=== PATIENT | female | born 1995 | race African-American/Black ===

== ENCOUNTER 2022-01-23 22:03 | Emergency (ER) | payer OTHER, SELFPAY ==
--- NOTE | ~2022-01-23 | XR_ITS ---
EXAMINATION: XR CHEST CLINICAL INFORMATION: Shortness of breath COMPARISON: None TECHNIQUE: Frontal view of the chest was obtained. FINDINGS: The lungs are clear with no focal consolidation. No evidence of pneumothorax, pulmonary edema, or pleural effusions. The cardiomediastinal silhouette is unremarkable. No acute osseous findings. XR/XR chest 1V IMPRESSION: No acute cardiopulmonary findings.
[2022-01-23 22:11] VITALS: BP 114/70; PULSE 90; O2SAT 99
[2022-01-23 22:13] VITALS: BP 132/79; PULSE 86; RESP 20; TEMP 36.3; O2SAT 98; BMI 36.5
[2022-01-23 23:07] LABS: Hematocrit 31.5 % (37.0-47.0); Hemoglobin 8.8 g/dl (12.0-16.0); Imm Gran Abs Auto 0.02 X10*3/uL (0.00-0.03); Imm Gran Pct Auto 0.3 % (0.0-0.4); Lymphocytes Percent Auto 31.2 % (20-40); Mean Corpuscular HGB Conc 27.9 g/dl (31.0-35.0); PLT ABN DIST 1; SCAN SMEAR FLAG 1
[2022-01-23 23:08] LABS: Basophils Absolute Auto 0.1 X10*3/uL (0.0-0.2); Basophils Percent Auto 0.8 % (0-2); Eosinophils Absolute Auto 0.2 X10*3/uL (0.0-0.4); Eosinophils Percent Auto 2.2 % (0-4); Lymphocytes Absolute Auto 2.4 X10*3/uL (1.2-4.9); Mean Corpuscular Hemoglobin 17.1 pg (27.0-33.0); Monocytes Absolute Auto 0.7 X10*3/uL (0.1-1.2); Monocytes Percent Auto 8.5 % (2-11); Neutrophils Absolute Auto 4.4 x10*3/uL (2.0-8.3); Platelet Count 280 X10*3/uL (160-400); Red Blood Count 5.14 X10*6/uL (4.20-5.50); Red Cell Distribution Width 21.6 % (11.0-16.0); White Blood Count 7.8 X10*3/uL (4.8-10.8)
[2022-01-23 23:21] LABS: COVID-19 Test Negative (Negative); IDNOW Serial# 16C4AD1C; IDNOW Serial# BCCEAD1C; Influenza A Negative (Negative); Influenza B2 Negative (Negative)
[2022-01-23 23:34] LABS: MANUAL DIFF FLAG NO
[2022-01-23 23:35] LABS: Mean Corpuscular Volume 61.3 fL (80.0-98.0)
[2022-01-23 23:40] LABS: Alanine Aminotransferase 23 U/L (0-31); Albumin Level 4.1 g/dL (3.5-5.0); Alkaline Phosphatase 78 U/L (39-117); Anion Gap 15 (12-20); Aspartate Amino Transferase 22 U/L (5-31); Blood Urea Nitrogen 11 mg/dL (9-16); Carbon Dioxide 26 mmol/L (22-29); Chloride 104 mmol/L (96-108); Creatinine Clr Calc Pharmacy 136.3; Estimated Glomerular Filt Rate > 60; Glucose Random 108 mg/dL (60-115); Lipase 17 U/L (8-78); Potassium 4.5 mmol/L (3.3-5.1); Sodium 140 mmol/L (135-145); Total Protein 7.5 g/dL (6.5-8.0)
[2022-01-24] VITALS: BP 108/70; PULSE 74; RESP 16; TEMP 36.6; O2SAT 98
--- NOTE | 2022-01-24 00:08 | ED.ABDPAIN ---
HPI - Abdominal Pain General Chief Complaint: Abdominal Pain Stated Complaint: abd pain Time Seen by Provider: 01/24/22 00:02 Related Data Allergies Allergy/AdvReac Type Severity Reaction Status Date / Time No Known Allergies Allergy Verified 01/23/22 22:18 COUNTS INCLUDE 234 BEDS AT THE [facility] Social History Social History Smoked in Last 30 Days: Yes Use of substances other than those prescribed or required for medical reasons: No Advance Directives: No Advance Directives Information Provided: Yes Patient : No Physical Exam ED Vital Signs: Vital Signs - 24 hr 01/23/22 22:13 01/24/22 00:00 Temperature 97.3 F 97.8 F Pulse Rate 86 74 Respiratory Rate 20 16 Blood Pressure 132/79 108/70 Pulse Oximetry 98 98 Oxygen Delivery Method Room Air Room Air BMI result Body Mass Index 36.5 MDM - Abdominal Pain Lab Data Result diagrams: 01/23/22 22:58 01/23/22 22:58 Labs: Lab Results 01/23/22 01/23/22 01/23/22 Range/Units 22:58 22:58 22:58 WBC 7.8 (4.8-10.8) X10*3/uL RBC 5.14 (4.20-5.50) X10*6/uL Hgb 8.8 L (12.0-16.0) g/dl Hct 31.5 L (37.0-47.0) % MCV 61.3 L (80.0-98.0) fL MCH 17.1 L (27.0-33.0) pg MCHC 27.9 L (31.0-35.0) g/dl RDW 21.6 H (11.0-16.0) % Plt Count 280 (160-400) X10*3/uL MPV TNP Immature Gran % (Auto) 0.3 (0.0-0.4) % Neut % (Auto) 57.0 (45-73) % Lymph % (Auto) 31.2 (20-40) % Titus % (Auto) 8.5 (2-11) % Eos % (Auto) 2.2 (0-4) % Baso % (Auto) 0.8 (0-2) % Lymph # (Auto) 2.4 (1.2-4.9) X10*3/uL Titus # (Auto) 0.7 (0.1-1.2) X10*3/uL Eos # (Auto) 0.2 (0.0-0.4) X10*3/uL Baso # (Auto) 0.1 (0.0-0.2) X10*3/uL Abs Immat Gran (auto) 0.02 (0.00-0.03) X10*3/uL Absolute Neuts (auto) 4.4 (2.0-8.3) x10*3/uL Absolute Nucleated RBC 0.000 (0.0-0.012) X10*3/uL Nucleated RBC % (auto) 0.0 (0.0-0.2) /100WBC Sodium 140 (135-145) mmol/L Potassium 4.5 (3.3-5.1) mmol/L Chloride 104 (96-108) mmol/L Carbon Dioxide 26 (22-29) mmol/L Anion Gap 15 (12-20) BUN 11 (9-16) mg/dL Creatinine 0.78 (0.5-1.4) mg/dL Estim Creat Clear Calc 136.3 Estimated GFR > 60 Random Glucose 108 (60-115) mg/dL Calcium 9.0 (8.4-10.2) mg/dL AST 22 (5-31) U/L ALT 23 (0-31) U/L Alkaline Phosphatase 78 (39-117) U/L Total Protein 7.5 (6.5-8.0) g/dL Albumin 4.1 (3.5-5.0) g/dL Lipase 17 (8-78) U/L COVID-19 (NAVIN) (Negative) COVID-19 Clin Com Influenza Type A (VIVI) Negative (Negative) Influenza Type B (VIVI) Negative (Negative) Influenza A & B Note See Note 01/23/22 Range/Units 22:58 WBC (4.8-10.8) X10*3/uL RBC (4.20-5.50) X10*6/uL Hgb (12.0-16.0) g/dl Hct (37.0-47.0) % MCV (80.0-98.0) fL MCH (27.0-33.0) pg MCHC (31.0-35.0) g/dl RDW (11.0-16.0) % Plt Count (160-400) X10*3/uL MPV Immature Gran % (Auto) (0.0-0.4) % Neut % (Auto) (45-73) % Lymph % (Auto) (20-40) % Titus % (Auto) (2-11) % Eos % (Auto) (0-4) % Baso % (Auto) (0-2) % Lymph # (Auto) (1.2-4.9) X10*3/uL Titus # (Auto) (0.1-1.2) X10*3/uL Eos # (Auto) (0.0-0.4) X10*3/uL Baso # (Auto) (0.0-0.2) X10*3/uL Abs Immat Gran (auto) (0.00-0.03) X10*3/uL Absolute Neuts (auto) (2.0-8.3) x10*3/uL Absolute Nucleated RBC (0.0-0.012) X10*3/uL Nucleated RBC % (auto) (0.0-0.2) /100WBC Sodium (135-145) mmol/L Potassium (3.3-5.1) mmol/L Chloride (96-108) mmol/L Carbon Dioxide (22-29) mmol/L Anion Gap (12-20) BUN (9-16) mg/dL Creatinine (0.5-1.4) mg/dL Estim Creat Clear Calc Estimated GFR Random Glucose (60-115) mg/dL Calcium (8.4-10.2) mg/dL AST (5-31) U/L ALT (0-31) U/L Alkaline Phosphatase (39-117) U/L Total Protein (6.5-8.0) g/dL Albumin (3.5-5.0) g/dL Lipase (8-78) U/L COVID-19 (NAVIN) Negative (Negative) COVID-19 Clin Com See Note Influenza Type A (VIVI) (Negative) Influenza Type B (VIVI) (Negative) Influenza A & B Note
--- NOTE | 2022-01-24 00:43 | ED_ITS ---
HPI - URI/Sore Throat General Chief Complaint: Abdominal Pain Stated Complaint: abd pain Time Seen by Provider: 01/24/22 00:02 Source: patient Mode of arrival: ambulatory Limitations: no limitations History of Present Illness HPI Narrative: Patient history of asthma been feeling congested with clear nasal discharge cough and shortness of breath for last 1 week complaining of pain in the right lower lungs after coughing. No fever no chills no nausea no vomiting no abdominal pain Related Data Previous Rx's Medication Instructions Recorded albuterol sulfate 90 mcg/actuation 2 puff inhalation Q4-6H PRN 01/24/22 aerosol inhaler (ProAir HFA) shortness of breath or wheezing #8.5 grams amoxicillin 875 mg-potassium 1 tab PO BID #20 tabs 01/24/22 clavulanate 125 mg tablet codeine 10 mg-guaifenesin 100 mg/5 10 ml PO Q6H PRN cough #237 mL 01/24/22 mL oral liquid ferrous sulfate 325 mg (65 mg 325 mg PO DAILY #30 tabs 01/24/22 iron) tablet prednisone 20 mg tablet 40 mg PO DAILY #10 tabs 01/24/22 Allergies Allergy/AdvReac Type Severity Reaction Status Date / Time No Known Allergies Allergy Verified 01/23/22 22:18 Review of Systems Review of Systems: Yes all other systems are reviewed and are negative [facility] Social History Social History Smoked in Last 30 Days: Yes Use of substances other than those prescribed or required for medical reasons: No Advance Directives: No Advance Directives Information Provided: Yes Patient : No Physical Exam Vital Signs: Vital Signs: Last Vital Signs Temp 98.1 F 01/24/22 02:00 Pulse 79 01/24/22 02:00 Resp 18 01/24/22 02:00 BP 139/99 H 01/24/22 02:00 Pulse Ox 100 01/24/22 02:00 O2 Del Method 01/24/22 02:00 BMI result Body Mass Index 36.5 Appearance: Alert. Oriented X3. No acute distress. ENT: Pharynx normal. Oral Mucosa moist inflamed nasal turbinate with clear discharge Neck: Normal inspection. Neck supple. CVS: Normal heart rate and rhythm. Pulses normal. Respiratory: No respiratory distress. Equal air entry bilateral, bilateral wheezing and prolonged expiration no rales Abdomen: Soft and nontender. Bowel sounds are present, Skin: Skin warm and dry. Normal skin color. Normal skin turgor. Extremities: No lower extremity edema. No calf tendernessNo motor deficit. No sensory deficit.No cerebellar signs , cranial nerves II-XII intact Medications Administered Discontinued Medications Generic Name Dose Route Start Last Admin Trade Name Michaelq PRN Reason Stop Dose Admin Amoxicillin/Clavulanate Potassium 875 mg 01/24/22 00:45 01/24/22 01:02 Amoxicillin/Potassium Clav 875 Mg Tablet PO 01/24/22 00:46 875 mg ONCE ONE Administration Albuterol Sulfate 2.5 mg/ 0 mg 01/24/22 00:45 01/24/22 01:07 Albuterol/Ipratropium 3 ml INHALE 01/24/22 00:46 1 each ONCE ONE Administration Dexamethasone 10 mg 01/24/22 00:45 01/24/22 01:02 Dexamethasone 2 Mg Tablet PO 01/24/22 00:46 10 mg ONCE ONE Administration Guaifenesin/Codeine Phosphate 10 ml 01/24/22 00:45 01/24/22 01:03 Guaifen/Codeine Sf 200/20/10ml 10 Ml Liquid PO 01/24/22 00:46 10 ml ONCE ONE Administration MDM - URI/Sore Throat MDM Narrative Medical decision making narrative: Patient's asthma with chronic anemia secondary to menorrhagia she is supposed to be on iron tablet which she is not taking will prescribe her iron tablets patient felt better after nebulizing treatment chest x-ray negative for infiltrate Differential Diagnosis Differential diagnosis: Likely upper respiratory infection, viral infection and bronchitis Lab Data Attestation: I reviewed the patient's lab results. Result diagrams: 01/23/22 22:58 01/23/22 22:58 Labs: Lab Results 01/23/22 01/23/22 01/23/22 Range/Units 22:58 22:58 22:58 WBC 7.8 (4.8-10.8) X10*3/uL RBC 5.14 (4.20-5.50) X10*6/uL Hgb 8.8 L (12.0-16.0) g/dl Hct 31.5 L (37.0-47.0) % MCV 61.3 L (80.0-98.0) fL MCH 17.1 L (27.0-33.0) pg MCHC 27.9 L (31.0-35.0) g/dl RDW 21.6 H (11.0-16.0) % Plt Count 280 (160-400) X10*3/uL MPV TNP Immature Gran % (Auto) 0.3 (0.0-0.4) % Neut % (Auto) 57.0 (45-73) % Lymph % (Auto) 31.2 (20-40) % Jerome % (Auto) 8.5 (2-11) % Eos % (Auto) 2.2 (0-4) % Baso % (Auto) 0.8 (0-2) % Lymph # (Auto) 2.4 (1.2-4.9) X10*3/uL Jerome # (Auto) 0.7 (0.1-1.2) X10*3/uL Eos # (Auto) 0.2 (0.0-0.4) X10*3/uL Baso # (Auto) 0.1 (0.0-0.2) X10*3/uL Abs Immat Gran (auto) 0.02 (0.00-0.03) X10*3/uL Absolute Neuts (auto) 4.4 (2.0-8.3) x10*3/uL Absolute Nucleated RBC 0.000 (0.0-0.012) X10*3/uL Nucleated RBC % (auto) 0.0 (0.0-0.2) /100WBC Sodium 140 (135-145) mmol/L Potassium 4.5 (3.3-5.1) mmol/L Chloride 104 (96-108) mmol/L Carbon Dioxide 26 (22-29) mmol/L Anion Gap 15 (12-20) BUN 11 (9-16) mg/dL Creatinine 0.78 (0.5-1.4) mg/dL Estim Creat Clear Calc 136.3 Estimated GFR > 60 Random Glucose 108 (60-115) mg/dL Calcium 9.0 (8.4-10.2) mg/dL Total Bilirubin 0.3 (0.0-1.0) mg/dL AST 22 (5-31) U/L ALT 23 (0-31) U/L Alkaline Phosphatase 78 (39-117) U/L Total Protein 7.5 (6.5-8.0) g/dL Albumin 4.1 (3.5-5.0) g/dL Lipase 17 (8-78) U/L COVID-19 (NAVIN) (Negative) COVID-19 Clin Com Influenza Type A (VIVI) Negative (Negative) Influenza Type B (VIVI) Negative (Negative) Influenza A & B Note See Note 01/23/22 Range/Units 22:58 WBC (4.8-10.8) X10*3/uL RBC (4.20-5.50) X10*6/uL Hgb (12.0-16.0) g/dl Hct (37.0-47.0) % MCV (80.0-98.0) fL MCH (27.0-33.0) pg MCHC (31.0-35.0) g/dl RDW (11.0-16.0) % Plt Count (160-400) X10*3/uL MPV Immature Gran % (Auto) (0.0-0.4) % Neut % (Auto) (45-73) % Lymph % (Auto) (20-40) % Jerome % (Auto) (2-11) % Eos % (Auto) (0-4) % Baso % (Auto) (0-2) % Lymph # (Auto) (1.2-4.9) X10*3/uL Jerome # (Auto) (0.1-1.2) X10*3/uL Eos # (Auto) (0.0-0.4) X10*3/uL Baso # (Auto) (0.0-0.2) X10*3/uL Abs Immat Gran (auto) (0.00-0.03) X10*3/uL Absolute Neuts (auto) (2.0-8.3) x10*3/uL Absolute Nucleated RBC (0.0-0.012) X10*3/uL Nucleated RBC % (auto) (0.0-0.2) /100WBC Sodium (135-145) mmol/L Potassium (3.3-5.1) mmol/L Chloride (96-108) mmol/L Carbon Dioxide (22-29) mmol/L Anion Gap (12-20) BUN (9-16) mg/dL Creatinine (0.5-1.4) mg/dL Estim Creat Clear Calc Estimated GFR Random Glucose (60-115) mg/dL Calcium (8.4-10.2) mg/dL Total Bilirubin (0.0-1.0) mg/dL AST (5-31) U/L ALT (0-31) U/L Alkaline Phosphatase (39-117) U/L Total Protein (6.5-8.0) g/dL Albumin (3.5-5.0) g/dL Lipase (8-78) U/L COVID-19 (NAVIN) Negative (Negative) COVID-19 Clin Com See Note Influenza Type A (VIVI) (Negative) Influenza Type B (VIVI) (Negative) Influenza A & B Note Discharge Plan Discharge Clinical Impression: Acute asthmatic bronchitis Patient Disposition: Home, Self-Care Instructions: Asthma (ED) Additional Instructions: Use inhaler as advised Prednisone and cough syrup as prescribed Take your iron tablet every day Follow with your PCP Prescriptions: New codeine-guaifenesin 10-100 mg/5 mL liquid 10 ml PO Q6H PRN (Reason: cough) Qty: 237 0RF prednisone 20 mg tablet 40 mg PO DAILY Qty: 10 0RF albuterol sulfate [ProAir HFA] 90 mcg/actuation HFA aerosol inhaler 2 puff inhalation Q4-6H PRN (Reason: shortness of breath or wheezing) Qty: 8.5 0RF amoxicillin-pot clavulanate 875-125 mg tablet 1 tab PO BID Qty: 20 0RF ferrous sulfate 325 mg (65 mg iron) tablet 325 mg PO DAILY Qty: 30 3RF Stand Alone Forms: Work/School Release Interventions: ED Discharge Assessment Last Done: 01/24/22 02:40 Discharge Date/Time: 01/24/22 02:40
[2022-01-24 00:56] LABS: Bilirubin Total 0.3 mg/dL (0.0-1.0)
[2022-01-24] MEDS: dexAMETHasone 2 MG TABLET 10 MG PO (01:02)
[2022-01-24] MEDS: Amoxicillin/Potassium Clav 875 MG TABLET PO (01:02)
[2022-01-24] MEDS: guaiFEN/Codeine SF 200/20/10ML 10 ML LIQUID PO (01:03)
[2022-01-24] MEDS: Albuterol Sulfate 2.5 MG, Albuterol/Iprat 2.5/0.5MG 3 ML 3 ML INHALE (01:07)
[2022-01-24 01:10] VITALS: PULSE 72; RESP 16; O2SAT 97
[2022-01-24 02:00] VITALS: BP 139/99; PULSE 79; RESP 18; TEMP 36.7; O2SAT 100
--- NOTE | 2022-01-24 02:27 | PC.NURSE ---
IV removed. Pt tolerated well. Discharge instructions reviewed with pt. Pt verbalizes understanding.
== END 2022-01-24 02:40 | disposition home or self-care (01) ==
PROVIDERS: Emergency Provider Internal Medicine
DX: J45.901 Unspecified asthma with (acute) exacerbation (principal); R06.02 Shortness of breath; R05.9 Cough, unspecified; Z20.822 Contact with and (suspected) exposure to COVID-19; Z79.899 Other long term (current) drug therapy
CPT/HCPCS: 71045; 80053; 83690; 85025; 87502; 87635; 94640; 99285; J8540